=== PATIENT | male | born 1955 | race Caucasian/White ===

== ENCOUNTER 2017-06-21 17:11 | Emergency (ER) | payer BC ==
[2017-06-21 19:03] VITALS: BP 125/81
--- NOTE | 2017-06-21 19:03 | UC ---
Elbow Pain - HPI Summary HPI Summary: 62 year old male presents with complains left elbow swelling/erythema - History of Current Complaint Chief Complaint: UCUpperExtremity Stated Complaint: LEFT ELBOW PAIN Time Seen by Provider: 06/21/17 19:01 Hx Obtained From: Patient Severity Initially: Moderate Severity Currently: Moderate Pain Scale Used: 0-10 Numeric - 5 - Allergies/Home Medications Allergies/Adverse Reactions: Allergies Allergy/AdvReac Type Severity Reaction Status Date / Time No Known Allergies Allergy Verified 06/21/17 18:54 Home Medications: Home Medications buPROPion TAB* [Wellbutrin TAB*] 75 mg DAILY 06/21/17 [History Confirmed ] PMH/Surg Hx/FS Hx/Imm Hx Previously Healthy: Yes Review of Systems Constitutional: Fever Skin: Negative Eyes: Negative ENT: Sore Throat, Nasal Discharge, Sinus Congestion, Sinus Pain/Tenderness Respiratory: Negative Cardiovascular: Negative Gastrointestinal: Negative Genitourinary: Negative Motor: Negative Neurovascular: Negative Musculoskeletal: Negative Neurological: Negative Psychological: Negative All Other Systems Reviewed And Are Negative: Yes Physical Exam Triage Information Reviewed: Yes Vital Signs Reviewed: Yes Eye Exam: Normal ENT: Positive: Nasal congestion, Nasal drainage, Tonsillar swelling, Sinus tenderness Dental Exam: Normal Neck exam: Normal Neck: Positive: 1 Respiratory Exam: Normal Cardiovascular Exam: Normal Abdominal Exam: Normal Musculoskeletal Exam: Normal Neurological Exam: Normal Psychological Exam: Normal Skin Exam: Normal Elbow Pain Course/Dx - Differential Dx/Diagnosis Provider Diagnoses: left elbow olecranon bursitis Discharge - Discharge Plan Condition: Stable Disposition: HOME Prescriptions: DOXYcycline CAP(*) [DOXYcycline 100MG CAP(*)] 100 mg PO BID #20 cap Methylprednisolone [Medrol Dosepak 4 MG*] 4 mg PO .SEE [facility]EN[facility] INSTRUCTION #21 tab Patient Education Materials: Elbow Bursitis (ED) Referrals: Robe Dunn MD [Medical Doctor] -
== END 2017-06-21 19:17 | disposition home or self-care (01) ==
LOC: UCCORT 17:11
DX: M70.22 Olecranon bursitis, left elbow (principal); Y93.9 Activity, unspecified; R50.9 Fever, unspecified; J02.9 Acute pharyngitis, unspecified
CPT/HCPCS: 99202; G0463